=== PATIENT | female | born 1940 | race Caucasian/White ===

== ENCOUNTER → 2018-02-15 | Outpatient (CLI) | payer BC ==
--- NOTE | 2018-02-15 15:09 | XR ---
EXAMINATION TYPE: XR chest 2V DATE OF EXAM: 02/15/2018 COMPARISON: None INDICATION: Smoking history TECHNIQUE: Frontal and lateral views of the chest are obtained. FINDINGS: The heart size is normal. The pulmonary vasculature is normal. The lungs are clear. Surgical clips are in the epigastric region. IMPRESSION: 1. No acute pulmonary process.
== END | disposition home or self-care (01) ==
LOC: RADXRYALE 14:55
PROVIDERS: ATTEND Physician Assistant Medical
DX: J44.9 Chronic obstructive pulmonary disease, unspecified (principal); F17.210 Nicotine dependence, cigarettes, uncomplicated
CPT/HCPCS: 71046